=== PATIENT | female | born 1985 | race Caucasian/White ===

== ENCOUNTER 2016-05-18 17:17 | Emergency (ER) | payer MEDICAID, OTHER ==
[2016-05-18] MEDS ORDERED: SODIUM CHLORIDE 0.9% 1,000 ML IV ONE (18:05)
[2016-05-18] MEDS ORDERED: CLINDAMYCIN 600 MG/50 ML 50 ML IV ONE ×2 (18:05→18:09)
[2016-05-18] MEDS ORDERED: KETOROLAC 60 MG/2 ML VIAL IVP STA (18:05)
[2016-05-18] MEDS ORDERED: ONDANSETRON 4 MG/2 ML VIAL IVP STA (18:06)
[2016-05-18] MEDS ORDERED: HYDROmorphone 1 MG/ML SYRINGE IVP STA ×2 (18:06→20:52)
[2016-05-18] MEDS ORDERED: ONDANSETRON 4 MG/2 ML VIAL ONE (18:09)
[2016-05-18] MEDS ORDERED: KETOROLAC 30 MG/ML VIAL ONE (18:09)
[2016-05-18] MEDS ORDERED: HYDROmorphone 1 MG/ML SYRINGE ONE ×2 (18:09→20:55)
[2016-05-18] MEDS ORDERED: oxyCODONE/ACET 5/325 Prepack 4 PO STA (20:52)
[2016-05-18] MEDS ORDERED: oxyCODONE/ACET 5/325 Prepack 4 PO ONE (20:55)
== END 2016-05-18 21:15 | disposition home or self-care (01) ==
DX: L03.211 Cellulitis of face (principal)
CPT/HCPCS: 70487; 96374; 96375; 96376; 99283; 99284; J1170

== ENCOUNTER 2016-05-25 18:47 | Emergency (ER) | payer MEDICAID ==
[2016-05-25] MEDS ORDERED: SODIUM CHLORIDE 0.9% 1,000 ML IV ONE (19:45)
[2016-05-25] MEDS ORDERED: METOCLOPRAMIDE 10 MG/2 ML VIAL IVP STA (19:45)
[2016-05-25] MEDS ORDERED: diphenhydrAMINE INJ 50 MG/ML VIAL IVP STA (19:45)
[2016-05-25] MEDS ORDERED: KETOROLAC 60 MG/2 ML VIAL IVP STA (19:45)
[2016-05-25] MEDS ORDERED: diphenhydrAMINE INJ 50 MG/ML VIAL ONE (19:54)
[2016-05-25] MEDS ORDERED: KETOROLAC 30 MG/ML VIAL ONE (19:54)
[2016-05-25] MEDS ORDERED: METOCLOPRAMIDE 10 MG/2 ML VIAL IVP ONE (19:55)
[2016-05-25] MEDS ORDERED: LORazepam 2 MG/ML SYRINGE IVP STA (21:02)
[2016-05-25] MEDS ORDERED: LORazepam 2 MG/ML SYRINGE ONE (21:03)
== END 2016-05-25 22:04 | disposition home or self-care (01) ==
DX: G43.001 Migraine without aura, not intractable, with status migrainosus (principal)
CPT/HCPCS: 96374; 96375; 99283; 99284; J2060

== ENCOUNTER 2016-06-15 11:46 | Emergency (ER) | payer MEDICAID ==
[2016-06-15] MEDS ORDERED: LORazepam 2 MG/ML SYRINGE IVP STA (13:03)
[2016-06-15] MEDS ORDERED: SODIUM CHLORIDE 0.9% 1,000 ML IV ONE (13:03)
[2016-06-15] MEDS ORDERED: LORazepam 2 MG/ML SYRINGE ONE (13:11)
== END 2016-06-15 14:45 | disposition home or self-care (01) ==
DX: L98.8 Other specified disorders of the skin and subcutaneous tissue (principal); R00.0 Tachycardia, unspecified
CPT/HCPCS: 36415; 80053; 80306; 81003; 81025; 83690; 84443; 85025; 85379; 93005; 93010; 93971; 96374; 99283; 99284; J2060

== ENCOUNTER 2016-09-20 12:58 | Emergency (ER) | payer MEDICAID ==
[2016-09-20] MEDS ORDERED: SODIUM CHLORIDE 0.9% 1,000 ML IV ONE (13:38)
[2016-09-20] MEDS ORDERED: KETOROLAC 30 MG/ML VIAL IVP STA (13:38)
[2016-09-20] MEDS ORDERED: DEXAMETHASONE 10 MG/ML VIAL IVP STA (13:38)
[2016-09-20] MEDS ORDERED: METOCLOPRAMIDE 10 MG/2 ML VIAL IVP STA (13:38)
[2016-09-20] MEDS ORDERED: diphenhydrAMINE INJ 50 MG/ML VIAL IVP STA (13:38)
[2016-09-20] MEDS ORDERED: diphenhydrAMINE INJ 50 MG/ML VIAL ONE (13:39)
[2016-09-20] MEDS ORDERED: DEXAMETHASONE 10 MG/ML VIAL ONE (13:40)
[2016-09-20] MEDS ORDERED: METOCLOPRAMIDE 10 MG/2 ML VIAL IVP ONE (13:40)
[2016-09-20] MEDS ORDERED: KETOROLAC 30 MG/ML VIAL ONE (13:40)
--- NOTE | 2016-09-20 13:42 | ED Physician Documentation ---
PD HPI HEADACHE - Stated complaint Stated Complaint: MIGRAINE X 4 DAYS - Chief complaint Chief Complaint: Neuro - History obtained from History obtained from: Patient - History of Present Illness Timing - onset: Other (She has frequent migraines, about weekly. She chopped a lot of wood a few days ago and then tightened up her neck and now is having intractable migraine for the last 4 days. She usually takes Imitrex but is relatively new to the area and doesn't have a doctor here yet and doesn't have any Imitrex. There is no associated fever. It is a posterior head throbbing it radiates towards the front. No possibility of . She is photophobic and phonophobic and vomited earlier today. Headache was gradual in onset.) Review of Systems Ten Systems: 10 systems reviewed and negative Constitutional: denies: Fever, Chills Nose: denies: Rhinorrhea / runny nose, Congestion Respiratory: denies: Cough GI: denies: Abdominal Pain : denies: Now EGA PD PAST MEDICAL HISTORY - Past Medical History Cardiovascular: None Respiratory: None Neuro: Headache/migraine Endocrine/Autoimmune: None Psych: Anxiety - Past Surgical History Past Surgical History: No - Present Medications Home Medications: Ambulatory Orders Medication Instructions Recorded Confirmed Magnesium Oxide [Mag Ox] 400 mg PO BID PRN #10 tablet 05/25/16 09/20/16 Sumatriptan [Imitrex] 25 mg PO BID PRN #10 tablet 09/20/16 - Allergies Allergies/Adverse Reactions: Allergies Allergy/AdvReac Type Severity Reaction Status Date / Time prochlorperazine AdvReac Hallucinati Verified 06/15/16 11:52 [From Compazine] ons prochlorperazine edisylate * AdvReac Hallucinati Verified 06/15/16 11:52 [From Compazine] ons prochlorperazine maleate * AdvReac Hallucinati Verified 06/15/16 11:52 [From Compazine] ons - Social History Does the pt smoke?: No Smoking Status: Never smoker Does the pt drink ETOH?: No Does the pt have substance abuse?: No PD ED PE NORMAL - Vitals Vital signs reviewed: Yes - General General: Alert and oriented X 3, No acute distress - HEENT HEENT: PERRL, EOMI - Neck Neck: Supple, no meningeal sign - Neuro Neuro: Alert and oriented X 3, aromatherapist 2-12 intact, No motor deficit, No sensory deficit, Normal speech - Psych Psych: Normal mood, Normal affect Results - Vitals Vitals: Vital Signs - 24 hr 09/20/16 09/20/16 09/20/16 13:04 14:19 14:30 Temperature 36.4 C L Heart Rate 85 100 77 Respiratory 18 20 18 Rate Blood Pressure 107/73 100/80 O2 Saturation 100 99 100 09/20/16 15:16 Temperature Heart Rate 93 Respiratory 18 Rate Blood Pressure 102/55 L O2 Saturation 98 Oxygen O2 Source Room air PD MEDICAL DECISION MAKING - ED course ED course: The headache is gradual in onset and similar to prior headaches. As such I doubt subarachnoid hemorrhage. There are no infectious symptoms such as fever or stiff neck to make me suspect meningitis. No carbon monoxide exposure. Actually seems more like a tension headache due to chopping wood than anything else. She did have some relief with Reglan, Toradol, Benadryl, but she still developed some akathisia which was treated with Ativan. Still incomplete neck pain resolution so administered Dilaudid with good improvement Departure - Departure Disposition: 01 Home, Self Care Clinical Impression: Tension type headache, Neck muscle strain Condition: Good Record reviewed to determine appropriate education?: Yes Instructions: ED Sprain Strain Neck, ED Cephalgia Unspecified Follow-Up: [facility] [Provider Group] Prescriptions: Sumatriptan [Imitrex] 25 mg PO BID PRN #10 tablet PRN Reason: Headache Discharge Date/Time: 09/20/16 15:18
[2016-09-20] MEDS ORDERED: LORazepam 2 MG/ML SYRINGE IVP STA (14:15)
[2016-09-20] MEDS ORDERED: LORazepam 2 MG/ML SYRINGE ONE (14:15)
[2016-09-20] MEDS ORDERED: HYDROmorphone 1 MG/ML SYRINGE IVP STA (14:41)
[2016-09-20] MEDS ORDERED: HYDROmorphone 1 MG/ML SYRINGE ONE (14:42)
[2016-09-20 15:18] VITALS: BP 102/55
== END 2016-09-20 15:18 | disposition home or self-care (01) ==
LOC: ED 12:58
DX: G44.209 Tension-type headache, unspecified, not intractable (principal); S16.1XXA Strain of muscle, fascia and tendon at neck level, initial encounter; X50.3XXA Overexertion from repetitive movements, initial encounter
CPT/HCPCS: 36415; 96374; 96375; 99283; 99284; J1170; J2060

== ENCOUNTER 2017-02-21 12:23 | Emergency (ER) | payer MEDICAID ==
[2017-02-21] MEDS ORDERED: SUMAtriptan 6 MG/0.5 ML VIAL SUBQ STA (12:40)
[2017-02-21] MEDS ORDERED: SODIUM CHLORIDE 0.9% 1,000 ML IV ONE (12:40)
[2017-02-21] MEDS ORDERED: KETOROLAC 60 MG/2 ML VIAL IVP STA (12:40)
[2017-02-21] MEDS ORDERED: LORazepam 2 MG/ML SYRINGE IVP STA (12:40)
[2017-02-21] MEDS ORDERED: DEXAMETHASONE 10 MG/ML VIAL IVP STA (12:40)
[2017-02-21] MEDS ORDERED: LIDOCAINE 2%-EPI 1:100000 20 ML MDV ONE (12:47)
--- NOTE | 2017-02-21 12:50 | ED Physician Documentation ---
History of Present Illness - Stated complaint Stated Complaint: NECK PX/MIGRAINE/DEHYDRATION - Chief complaint Chief Complaint: General - History obtained from History obtained from: Patient - Additonal information Additional information: 32-year-old woman with frequent migraines, has been maintained on prophylactic medications in the past including but not limited to Topamax which she is not currently on because of side effects, specifically weight gain. She does get some relief from Imitrex. No current primary care physician, she moved to the area a little under a year ago and doctors kind of scare her. She has had a current headache for 2 days, gradual onset occipital headache associated with photophobia and nausea with vomiting for the last day and feeling like she is dizzy and dehydrated. No possibility of . No fever. Review of Systems Constitutional: denies: Fever, Chills Eyes: reports: Photophobia. denies: Loss of vision, Decreased vision Cardiac: denies: Chest pain / pressure, Palpitations Respiratory: denies: Dyspnea, Cough GI: reports: Nausea, Vomiting. denies: Abdominal Pain PD PAST MEDICAL HISTORY - Past Medical History Past Medical History: Yes Cardiovascular: None Respiratory: None Neuro: Headache/migraine Endocrine/Autoimmune: None Psych: Anxiety - Past Surgical History Past Surgical History: No - Present Medications Home Medications: Ambulatory Orders Medication Instructions Recorded Confirmed Cyclobenzaprine [Flexeril] 10 mg PO TID PRN #20 tablet 02/21/17 Lorazepam [Ativan] 1 mg PO TID PRN #10 tablet 02/21/17 Ondansetron HCl [Zofran] 4 mg PO Q6H PRN #10 tablet 02/21/17 Sumatriptan [Imitrex] 25 mg PO BID PRN #10 tablet 02/21/17 Topiramate [Topamax] 25 mg PO QD #30 tablet 02/21/17 - Allergies Allergies/Adverse Reactions: Allergies Allergy/AdvReac Type Severity Reaction Status Date / Time diphenhydramine AdvReac Anxiety Verified 02/21/17 12:30 prochlorperazine AdvReac Hallucinati Verified 02/21/17 12:30 [From Compazine] ons prochlorperazine edisylate * AdvReac Hallucinati Verified 02/21/17 12:30 [From Compazine] ons prochlorperazine maleate * AdvReac Hallucinati Verified 02/21/17 12:30 [From Compazine] ons - Social History Does the pt smoke?: No Smoking Status: Never smoker Does the pt drink ETOH?: No Does the pt have substance abuse?: No - Immunizations Immunizations are current?: Yes PD ED PE NORMAL - Vitals Vital signs reviewed: Yes - General General: Alert and oriented X 3, Other (Uncomfortable and photophobic) - HEENT HEENT: PERRL, EOMI - Neck Neck: Supple, no meningeal sign, No bony TTP - Neuro Neuro: Alert and oriented X 3, 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 PD MEDICAL DECISION MAKING - ED course ED course: 32-year-old woman with recurrent headache syndrome, partially seems migrainous, but partially is sort of the tension headaches/fibromyalgia flare. She was administered medications with stepwise relief, the headache was easier to break than her neck and shoulder pain. The headache is gradual in onset and similar to prior headaches. As such I doubt subarachnoid hemorrhage. There are no infectious symptoms such as fever or stiff neck to make me suspect meningitis. No carbon monoxide exposure by history. Departure - Departure Disposition: 01 Home, Self Care Clinical Impression: Tension type headache Qualifiers: Headache chronicity pattern: acute headache Intractability: not intractable Qualified Code(s): G44.209 - Tension-type headache, unspecified, not intractable Migraine Qualifiers: Migraine type: without aura Status migrainosus presence: with status migrainosus Intractability: not intractable Qualified Code(s): G43.001 - Migraine without aura, not intractable, with status migrainosus Neck muscle strain Qualifiers: Encounter type: initial encounter Qualified Code(s): S16.1XXA - Strain of muscle, fascia and tendon at neck level, initial encounter Condition: Good Record reviewed to determine appropriate education?: Yes Instructions: ED Spasm Neck No Injury Prescriptions: Cyclobenzaprine [Flexeril] 10 mg PO TID PRN #20 tablet PRN Reason: Pain Lorazepam [Ativan] 1 mg PO TID PRN #10 tablet PRN Reason: Anxiety Ondansetron HCl [Zofran] 4 mg PO Q6H PRN #10 tablet PRN Reason: Nausea / Vomiting Sumatriptan [Imitrex] 25 mg PO BID PRN #10 tablet PRN Reason: Headache Topiramate [Topamax] 25 mg PO QD #30 tablet Comments: Call your doctor to arrange a follow-up appointment, make the next available appointment. In the interim, return anytime if worse or if new symptoms develop. Discharge Date/Time: 02/21/17 15:18
[2017-02-21] MEDS ORDERED: LORazepam 2 MG/ML SYRINGE ONE (12:56)
[2017-02-21] MEDS ORDERED: SODIUM CHLORIDE FLUSH 0.9% 10 ML SYRINGE IVP ONE ×3 (12:56→14:06)
[2017-02-21] MEDS ORDERED: SUMAtriptan 6 MG/0.5 ML VIAL SUBQ ONE (12:57)
[2017-02-21] MEDS ORDERED: KETOROLAC 60 MG/2 ML VIAL ONE (12:57)
[2017-02-21] MEDS ORDERED: DEXAMETHASONE 10 MG/ML VIAL ONE (12:57)
[2017-02-21] MEDS ORDERED: ONDANSETRON 4 MG/2 ML VIAL IVP STA (13:41)
[2017-02-21] MEDS ORDERED: ONDANSETRON 4 MG/2 ML VIAL ONE (13:50)
[2017-02-21] MEDS ORDERED: MORPHINE 10 MG/ML VIAL IVP STA (13:57)
[2017-02-21] MEDS ORDERED: MORPHINE 10 MG/ML VIAL ONE (14:07)
[2017-02-21 14:59] VITALS: BP 99/60
== END 2017-02-21 15:18 | disposition home or self-care (01) ==
LOC: ED 12:23
DX: G44.209 Tension-type headache, unspecified, not intractable (principal); G43.001 Migraine without aura, not intractable, with status migrainosus; S16.1XXA Strain of muscle, fascia and tendon at neck level, initial encounter; X58.XXXA Exposure to other specified factors, initial encounter
CPT/HCPCS: 96361; 96372; 96374; 96375; 99283; 99284; J2060

== ENCOUNTER 2017-04-26 14:35 | Emergency (ER) | payer MEDICAID ==
[2017-04-26] MEDS ORDERED: SODIUM CHLORIDE 0.9% 1,000 ML IV ONE (14:48)
[2017-04-26] MEDS ORDERED: LIDOCAINE PATCH 5% TOP STA (14:49)
[2017-04-26] MEDS ORDERED: ONDANSETRON 4 MG/2 ML VIAL IVP STA (14:49)
[2017-04-26] MEDS ORDERED: ACETAMINOPHEN 1,000 MG/100 ML 100 ML IV STA (14:49)
[2017-04-26] MEDS ORDERED: KETOROLAC 60 MG/2 ML VIAL IVP STA (14:49)
--- NOTE | 2017-04-26 14:52 | ED Physician Documentation ---
History of Present Illness - Stated complaint Stated Complaint: MORALES - Chief complaint Chief Complaint: Heent - Additonal information Additional information: hx from pt 32 f hx migraines has a migraine MORALES same as prior migraines, onset yesterday, prsently severe, with associated neck tightness which is common for her migraines as well no fever no numbness weakness + photophobia no CO exposure denies preg MORALES started last night she took imitrex today s relief also advil migraine but threw that up Review of Systems Constitutional: denies: Fever, Chills Eyes: reports: Photophobia Respiratory: denies: Cough GI: reports: Nausea, Vomiting : denies: Now EGA (denies) Skin: denies: Rash Neurologic: reports: Headache. denies: Focal weakness, Numbness Immunocompromised: denies: Immunocompromised PD PAST MEDICAL HISTORY - Past Medical History Cardiovascular: None Respiratory: None Neuro: Headache/migraine Endocrine/Autoimmune: None Psych: Anxiety - Past Surgical History Past Surgical History: No - Present Medications Home Medications: Ambulatory Orders Medication Instructions Recorded Confirmed Cyclobenzaprine [Flexeril] 10 mg PO TID PRN #20 tablet 02/21/17 Lorazepam [Ativan] 1 mg PO TID PRN #10 tablet 02/21/17 Ondansetron HCl [Zofran] 4 mg PO Q6H PRN #10 tablet 02/21/17 SUMAtriptan [Imitrex] 25 mg PO BID PRN #10 tablet 02/21/17 Topiramate [Topamax] 25 mg PO QD #30 tablet 02/21/17 Carisoprodol [Soma] 350 mg PO Q8H PRN #15 tablet 04/26/17 Lidocaine Patch 5% [Lidoderm Patch] 1 each TOP DAILY PRN #10 patch 04/26/17 - Allergies Allergies/Adverse Reactions: Allergies Allergy/AdvReac Type Severity Reaction Status Date / Time diphenhydramine AdvReac Anxiety Verified 02/21/17 12:30 prochlorperazine AdvReac Hallucinati Verified 02/21/17 12:30 [From Compazine] ons prochlorperazine edisylate * AdvReac Hallucinati Verified 02/21/17 12:30 [From Compazine] ons prochlorperazine maleate * AdvReac Hallucinati Verified 02/21/17 12:30 [From Compazine] ons - Social History Does the pt smoke?: No Smoking Status: Never smoker Does the pt drink ETOH?: No Does the pt have substance abuse?: No - Immunizations Immunizations are current?: Yes PD ED PE NORMAL - Vitals Vital signs reviewed: Yes - General General: Alert and oriented X 3 - HEENT HEENT: PERRL (approx 3, globes soft, no TA TTP, too photophobic for fundoscopic) - Neck Neck: Supple, no meningeal sign - Cardiac Cardiac: RRR - Respiratory Respiratory: No respiratory distress, Clear bilaterally - Derm Derm: Normal color - Neuro Neuro: Alert and oriented X 3, branch chief 2-12 intact, No motor deficit, No sensory deficit, Normal speech Results - Vitals Vitals: Vital Signs - 24 hr 04/26/17 14:39 Temperature 36.2 C L Heart Rate 93 Respiratory 15 Rate Blood Pressure 97/67 O2 Saturation 99 Oxygen O2 Source Room air PD MEDICAL DECISION MAKING - ED course ED course: MORALES better with toradol ofirmev zofran IVF, neck still tight - same as prior visits per EMR review - added valium PO and pt felt better and ready to go - req lido patches and mm relaxant Departure - Departure Disposition: 01 Home, Self Care Clinical Impression: Neck muscle spasm Headache Qualifiers: Headache type: unspecified Headache chronicity pattern: acute headache Intractability: not intractable Qualified Code(s): R51 - Headache Condition: Good Instructions: ED Cephalgia Unspecified, ED Spasm Neck No Injury Prescriptions: Carisoprodol [Soma] 350 mg PO Q8H PRN #15 tablet PRN Reason: muscle spasm Lidocaine Patch 5% [Lidoderm Patch] 1 each TOP DAILY PRN #10 patch PRN Reason: Pain Forms: Activity restrictions
[2017-04-26] MEDS ORDERED: CYCLOBENZAPRINE 10 MG TABLET PO STA (15:54)
[2017-04-26] MEDS ORDERED: diazePAM INJ 5 MG/ML SYRINGE IVP STA (16:15)
[2017-04-26] MEDS ORDERED: diazePAM 5 MG TABLET PO STA (16:30)
[2017-04-26 17:42] VITALS: BP 110/65
== END 2017-04-26 17:40 | disposition home or self-care (01) ==
LOC: ED 14:35
DX: M62.838 Other muscle spasm (principal); R51 Headache
CPT/HCPCS: 96361; 96365; 96375; 99283; A9270; J0131

== ENCOUNTER 2017-11-30 11:32 | Emergency (ER) | payer MEDICAID ==
[2017-11-30] MEDS ORDERED: KETOROLAC 60 MG/2 ML VIAL IVP STA (15:04)
[2017-11-30] MEDS ORDERED: ONDANSETRON 4 MG/2 ML VIAL IVP STA (15:04)
[2017-11-30] MEDS ORDERED: SODIUM CHLORIDE 0.9% 1,000 ML IV ONE (15:04)
[2017-11-30] MEDS ORDERED: LORazepam 2 MG/ML VIAL IVP STA (15:04)
--- NOTE | 2017-11-30 15:05 | ED Physician Documentation ---
History of Present Illness - Stated complaint Stated Complaint: MIGRAINE - Chief complaint Chief Complaint: General - History obtained from History obtained from: Patient - History of Present Illness Timing: Other (32-year-old woman with frequent headaches, takes maxalt at home. She said 4 days of constant posterior headache radiating down to the shoulders that is worse with neck flexion and extension but also with rotation. It is similar to prior headaches but also with more facial pressure. She has been vomiting and she is light sensitive. There is no possibility of . She tried maxalt at home without relief.) Review of Systems Constitutional: denies: Fever, Chills Respiratory: denies: Dyspnea, Cough GI: reports: Nausea, Vomiting. denies: Abdominal Pain : denies: Dysuria, Now EGA PD PAST MEDICAL HISTORY - Past Medical History Cardiovascular: None Respiratory: None Endocrine/Autoimmune: None GI: None CHECK AIRMAN: None : None Psych: Anxiety Musculoskeletal: None Derm: None - Past Surgical History Past Surgical History: No - Present Medications Home Medications: Ambulatory Orders Medication Instructions Recorded Confirmed Cyclobenzaprine [Flexeril] 10 mg PO TID PRN #20 tablet 02/21/17 Lorazepam [Ativan] 1 mg PO TID PRN #10 tablet 02/21/17 Ondansetron HCl [Zofran] 4 mg PO Q6H PRN #10 tablet 02/21/17 SUMAtriptan [Imitrex] 25 mg PO BID PRN #10 tablet 02/21/17 Topiramate [Topamax] 25 mg PO QD #30 tablet 02/21/17 Carisoprodol [Soma] 350 mg PO Q8H PRN #15 tablet 04/26/17 Lidocaine Patch 5% [Lidoderm Patch] 1 each TOP DAILY PRN #10 patch 04/26/17 Methocarbamol [Robaxin-750] 750 mg PO TID PRN #10 tablet 11/30/17 - Allergies Allergies/Adverse Reactions: Allergies Allergy/AdvReac Type Severity Reaction Status Date / Time diphenhydramine AdvReac Anxiety Verified 02/21/17 12:30 prochlorperazine AdvReac Hallucinati Verified 02/21/17 12:30 [From Compazine] ons prochlorperazine edisylate * AdvReac Hallucinati Verified 02/21/17 12:30 [From Compazine] ons prochlorperazine maleate * AdvReac Hallucinati Verified 02/21/17 12:30 [From Compazine] ons - Social History Does the pt smoke?: No Smoking Status: Never smoker Does the pt drink ETOH?: No Does the pt have substance abuse?: No - Immunizations Immunizations are current?: Yes - POLST Patient has POLST: No PD ED PE NORMAL - Vitals Vital signs reviewed: Yes - General General: Alert and oriented X 3 (Light sensitive and photophobic) - HEENT HEENT: PERRL, EOMI - Neck Neck: Supple, no meningeal sign, No bony TTP - Neuro Neuro: Alert and oriented X 3, 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 As such I doubt subarachnoid hemorrhage. There are no infectious symptoms such as fever or stiff neck to make me suspect meningitis. No carbon monoxide exposure by history. Seems more like a tension headache and she feels the same. She was administered Ativan, Toradol, and Zofran with excellent relief of her symptoms. - Sepsis Event Vital Signs: Vital Signs - 24 hr 11/30/17 11/30/17 11/30/17 11:48 14:59 16:00 Temperature 36.2 C L 36.4 C L Heart Rate 80 80 80 Respiratory 18 20 15 Rate Blood Pressure 101/69 112/62 102/62 O2 Saturation 100 100 99 Oxygen O2 Source Nasal cannula Departure - Departure Disposition: 01 Home, Self Care Clinical Impression: Tension type headache Qualifiers: Headache chronicity pattern: acute headache Intractability: not intractable Qualified Code(s): G44.209 - Tension-type headache, unspecified, not intractable Condition: Good Record reviewed to determine appropriate education?: Yes Instructions: ED Headache Tension Prescriptions: Methocarbamol [Robaxin-750] 750 mg PO TID PRN #10 tablet PRN Reason: neck pain Comments: Call your doctor to arrange a follow-up appointment, make the next available appointment. In the interim, return anytime if worse or if new symptoms develop.
[2017-11-30 16:23] VITALS: BP 102/62
[2017-11-30] MEDS ORDERED: CYCLOBENZAPRINE 10 MG TABLET PO STA (16:49)
[2017-11-30] MEDS ORDERED: METHOCARBAMOL 500 MG TABLET PO STA (17:00)
== END 2017-11-30 17:09 | disposition home or self-care (01) ==
LOC: ED 11:32
DX: G44.209 Tension-type headache, unspecified, not intractable (principal)
CPT/HCPCS: 96374; 96375; 99283; A9270; J2060

== ENCOUNTER 2018-02-07 09:35 | Emergency (ER) | payer MEDICAID ==
[2018-02-07 09:50] VITALS: BP 111/66
[2018-02-07] MEDS ORDERED: BUPIVACAINE 0.5%-EPI 1:200000 PF 10 ML VIAL SUBQ STA (09:57)
--- NOTE | 2018-02-07 10:00 | ED Physician Documentation ---
History of Present Illness - Stated complaint Stated Complaint: TOOTH PX - Chief complaint Chief Complaint: Heent - History obtained from History obtained from: Patient, Family - History of Present Illness Timing: How many days ago (2) Pain level max: 10 Pain level now: 10 Improved by: nothing Worsened by: nothing - Additonal information Additional information: Patient is a 33-year-old female who presents to the emergency department with right upper dental pain. This been ongoing for the past 2 days. No fevers. Has had nausea and some vomiting from the pain. Has not taken anything for pain. Does not currently have a dentist. Does not recall any injuries. No fever. No possibility of . No rhinorrhea or congestion Review of Systems Constitutional: denies: Fever, Chills Respiratory: denies: Cough GI: denies: Abdominal Pain, Diarrhea : denies: Now EGA Skin: denies: Rash Musculoskeletal: denies: Neck pain, Back pain Neurologic: denies: Headache PD PAST MEDICAL HISTORY - Past Medical History Past Medical History: Yes Cardiovascular: None Respiratory: None Neuro: Migraines Endocrine/Autoimmune: None GI: None TRAFFIC CONTROL FLAGGER: None : None Psych: Anxiety Musculoskeletal: None Derm: None - Past Surgical History Past Surgical History: No - Present Medications Home Medications: Ambulatory Orders Medication Instructions Recorded Confirmed Hydrocodone/Acetaminophen 1 - 2 each PO Q6H PRN #14 tablet 02/07/18 [Hydrocodon-Acetaminophen 5-325] Ibuprofen [Motrin] 800 mg PO Q8H PRN #30 tablet 02/07/18 Penicillin V Potassium 500 mg PO Q6HR #40 tablet 02/07/18 Rizatriptan Benzoate [Rizatriptan] 0 mg 02/07/18 - Allergies Allergies/Adverse Reactions: Allergies Allergy/AdvReac Type Severity Reaction Status Date / Time diphenhydramine AdvReac Anxiety Verified 02/07/18 09:50 prochlorperazine AdvReac Hallucinati Verified 02/07/18 09:50 [From Compazine] ons prochlorperazine edisylate * AdvReac Hallucinati Verified 02/07/18 09:50 [From Compazine] ons prochlorperazine maleate * AdvReac Hallucinati Verified 02/07/18 09:50 [From Compazine] ons - Social History Does the pt smoke?: No Smoking Status: Never smoker Does the pt drink ETOH?: No Does the pt have substance abuse?: No - Immunizations Immunizations are current?: Yes - POLST Patient has POLST: No PD ED PE NORMAL - Vitals Vital signs reviewed: Yes - General General: Alert and oriented X 3, No acute distress - HEENT HEENT: Ears normal, Moist mucous membranes - Neck Neck: Supple, no meningeal sign - Cardiac Cardiac: RRR - Respiratory Respiratory: No respiratory distress, Clear bilaterally - Derm Derm: Warm and dry - Neuro Neuro: Alert and oriented X 3 PD ED PE EXPANDED - HEENT HEENT Visual: 1 - tenderness (no swelling or deformity.) Results - Vitals Vitals: Vital Signs - 24 hr 02/07/18 09:41 Temperature 35.9 C L Heart Rate 76 Respiratory 20 Rate Blood Pressure 111/66 O2 Saturation 100 Oxygen O2 Source Room air PD MEDICAL DECISION MAKING - ED course Complexity details: re-evaluated patient, considered differential, d/w patient ED course: Patient is a 33-year-old female with right upper dental pain, tooth 1. A dental block was performed with Marcaine plus epinephrine. Tolerated well. Pain greatly improved. Was given a dose of Toradol for a headache. Will place on antibiotics for home and pain medication. She was able to obtain a dentist appointment for 2:00 today. Patient counseled regarding signs and symptoms for which I believe and urgent re-evaluation would be necessary. Patient with good understanding of and agreement to plan and is comfortable going home at this time This document was made in part using voice recognition software. While efforts are made to proofread this document, sound alike and grammatical errors may occur. - Sepsis Event Vital Signs: Vital Signs - 24 hr 02/07/18 09:41 Temperature 35.9 C L Heart Rate 76 Respiratory 20 Rate Blood Pressure 111/66 O2 Saturation 100 Oxygen O2 Source Room air Departure - Departure Disposition: 01 Home, Self Care Clinical Impression: Pain due to dental caries Condition: Good Instructions: ED Tooth Pain Follow-Up: your,dentist within 2 days [Other] Prescriptions: Penicillin V Potassium 500 mg PO Q6HR #40 tablet Hydrocodone/Acetaminophen [Hydrocodon-Acetaminophen 5-325] 1 - 2 each PO Q6H PRN #14 tablet PRN Reason: pain Ibuprofen [Motrin] 800 mg PO Q8H PRN #30 tablet PRN Reason: PAIN &/OR FEVER Comments: Return if you worsen. It is very important that you are evaluated by a dentist for your tooth. This needs to be done as soon as possible, preferably within the next 2-3 days. Take all antibiotics until gone Do not drink alcohol or drive while on narcotic pain medicine. Note that many narcotic pain relievers also contain tylenol/acetaminophen. Please ensure that your total dose of acetaminophen from all sources does not exceed 3 grams (3000mg) per day. You may constipated on this medication, take a stool softener such as "Colace" twice a day while you are on it. Also recommend a [id number] laxative such as senna or MiraLAX any day that you do not have a bowel movement. If you received narcotic pain medication in the emergency department, do not drive or operate machinery for the next 24 hours. Discharge Date/Time: 02/07/18 10:49
[2018-02-07] MEDS ORDERED: KETOROLAC 60 MG/2 ML VIAL IM STA (10:41)
== END 2018-02-07 10:49 | disposition home or self-care (01) ==
LOC: ED 09:35
DX: K02.9 Dental caries, unspecified (principal); R51 Headache
CPT/HCPCS: 64400; 96372; 99283

== ENCOUNTER 2018-04-05 11:36 | Emergency (ER) | payer MEDICAID ==
[2018-04-05 11:42] VITALS: BP 123/73
--- NOTE | 2018-04-05 13:11 | ED Physician Documentation ---
History of Present Illness - Stated complaint Stated Complaint: FEMALE - Chief complaint Chief Complaint: General - History obtained from History obtained from: Patient - History of Present Illness Timing: Other (Several days worth of a genital herpes outbreak. She is been on Valtrex before and requests a refill.) Review of Systems Constitutional: reports: Fatigue. 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 : None Psych: Anxiety Musculoskeletal: None Derm: None - Past Surgical History Past Surgical History: No - Present Medications Home Medications: Ambulatory Orders Medication Instructions Recorded Confirmed Ibuprofen [Motrin] 800 mg PO Q8H PRN #30 tablet 02/07/18 Rizatriptan Benzoate [Rizatriptan] 0 mg 02/07/18 Valacyclovir HCl [Valacyclovir] 500 mg PO BID 2 Days #10 tablet 04/05/18 - Allergies Allergies/Adverse Reactions: Allergies Allergy/AdvReac Type Severity Reaction Status Date / Time diphenhydramine AdvReac Anxiety Verified 02/07/18 09:50 prochlorperazine AdvReac Hallucinati Verified 02/07/18 09:50 [From Compazine] ons prochlorperazine edisylate * AdvReac Hallucinati Verified 02/07/18 09:50 [From Compazine] ons prochlorperazine maleate * AdvReac Hallucinati Verified 04/05/18 11:42 [From Compazine] ons - Social History Does the pt smoke?: No Smoking Status: Never smoker Does the pt drink ETOH?: No Does the pt have substance abuse?: No - Immunizations Immunizations are current?: Yes - POLST Patient has POLST: No PD ED PE NORMAL - Vitals Vital signs reviewed: Yes - General General: Alert and oriented X 3, No acute distress - Female Female : Deferred (We discussed a pelvic exam but she is sure of the diagnosis.) - Neuro Neuro: Alert and oriented X 3, Normal speech Results - Vitals Vitals: Vital Signs - 24 hr 04/05/18 11:40 Temperature 36.5 C Heart Rate 94 Respiratory 18 Rate Blood Pressure 123/73 O2 Saturation 100 Oxygen O2 Source Room air Departure - Departure Disposition: Home, Self Care Clinical Impression: Genital herpes Qualifiers: Herpes simplex infection site: vulvovaginitis Qualified Code(s): A60.04 - Herpesviral vulvovaginitis Condition: Good Record reviewed to determine appropriate education?: Yes Instructions: ED Herpes Simplex Virus Type 2 Prescriptions: Valacyclovir HCl [Valacyclovir] 500 mg PO BID 2 Days #10 tablet Comments: Call your doctor to arrange a follow-up appointment, make the next available appointment. In the interim, return anytime if worse or if new symptoms develop.
== END 2018-04-05 13:16 | disposition home or self-care (01) ==
LOC: ED 11:36
DX: A60.04 Herpesviral vulvovaginitis (principal)
CPT/HCPCS: 99281; 99283

== ENCOUNTER 2018-06-23 20:10 | Emergency (ER) | payer MEDICAID ==
--- NOTE | 2018-06-23 20:26 | ED Physician Documentation ---
PD HPI HEADACHE - Stated complaint Stated Complaint: HEAD/NECK PX/VOMITING - Chief complaint Chief Complaint: Neuro - History obtained from History obtained from: Patient - History of Present Illness Timing - onset: Today Timing - onset during: Light activity Timing - details: Gradual onset, Still present Worst headache ever?: No: Worst headache ever? (feels similar to prior migraines and muscle tension headaches.) Location: Back, Left Quality: Throbbing, Aching Associated symptoms: Stiff neck (left side, with feeling of muscle spasm), Nausea, Other (light sensitive as well). No: Fever, Vomiting, Weakness, Numbness Worsened by: Light Contributing factors: No: Recent illness, Trauma Similar symptoms before: Diagnosis (has migraines and muscle tension headaches, she says this feels more muscle tension but some migraine components.) Review of Systems Constitutional: denies: Fever Nose: denies: Rhinorrhea / runny nose, Congestion Throat: denies: Sore throat Respiratory: denies: Cough GI: reports: Nausea. denies: Abdominal Pain, Vomiting Skin: denies: Rash, Lesions Neurologic: reports: Headache. 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 : None Psych: Anxiety Musculoskeletal: None Derm: None - Past Surgical History Past Surgical History: No - Present Medications Home Medications: Ambulatory Orders Medication Instructions Recorded Confirmed Ibuprofen [Motrin] 800 mg PO Q8H PRN #30 tablet 02/07/18 Rizatriptan Benzoate [Rizatriptan] 0 mg 02/07/18 Valacyclovir HCl [Valacyclovir] 500 mg PO BID 2 Days #10 tablet 04/05/18 LORazepam [Ativan] 1 mg PO Q12H PRN #8 tablet 06/23/18 Ondansetron Odt [Zofran] 4 mg TL Q6H PRN #10 tablet 06/23/18 - Allergies Allergies/Adverse Reactions: Allergies Allergy/AdvReac Type Severity Reaction Status Date / Time diphenhydramine AdvReac Anxiety Verified 06/23/18 20:15 prochlorperazine AdvReac Hallucinati Verified 06/23/18 20:15 [From Compazine] ons prochlorperazine edisylate * AdvReac Hallucinati Verified 06/23/18 20:15 [From Compazine] ons prochlorperazine maleate * AdvReac Hallucinati Verified 06/23/18 20:15 [From Compazine] ons - Social History Does the pt smoke?: No Smoking Status: Never smoker Does the pt drink ETOH?: No Does the pt have substance abuse?: No - Immunizations Immunizations are current?: Yes - POLST Patient has POLST: No PD ED PE NORMAL - Vitals Vital signs reviewed: Yes - General General: Alert and oriented X 3, Well developed/nourished, Other (appears uncomfortable. ) - HEENT HEENT: PERRL (light sensitive), Pharynx benign - Neck Neck: Supple, no meningeal sign, No adenopathy, Other (tender left trapezius muscle with spasm felt about level of C7 laterally and also with tendernes left trapezius insertion at occipital ridge with triggering of pain to left side of head with palpation there. No rash nor sores. ) - Cardiac Cardiac: RRR, No murmur - Abdomen Abdomen: Soft, Non tender - Back Back: No spinal TTP - Derm Derm: Normal color, Warm and dry, No rash Results - Vitals Vitals: Oxygen O2 Source Room air Procedures - General procedure General procedure: Trigger point injections at left side trapezius muscle at level of lower cervical and also at trapezius insertion, using Bupivocaine. 2 ml injected after cleansing skin. PD MEDICAL DECISION MAKING - ED course Complexity details: reviewed old records, re-evaluated patient (she says muscle component seems much better after trigger point injection. ), considered differential, d/w patient Departure - Departure Disposition: 01 Home, Self Care Clinical Impression: Headache Qualifiers: Headache type: tension-type Headache chronicity pattern: acute headache Intractability: not intractable Qualified Code(s): G44.209 - Tension-type headache, unspecified, not intractable Migraine Qualifiers: Migraine type: without aura Status migrainosus presence: without status migrainosus Intractability: not intractable Qualified Code(s): G43.009 - Migraine without aura, not intractable, without status migrainosus Condition: Stable Record reviewed to determine appropriate education?: Yes Instructions: ED Headache Tension Prescriptions: LORazepam [Ativan] 1 mg PO Q12H PRN #8 tablet PRN Reason: Headache Ondansetron Odt [Zofran] 4 mg TL Q6H PRN #10 tablet PRN Reason: Nausea / Vomiting Comments: Stay well hydrated. Zofran if needed for nausea. Ativan as needed for muscle tension very occasionally. Any further prescriptions would be at the discretion of your primary care provider. Discharge Date/Time: 06/23/18 23:25
[2018-06-23] MEDS ORDERED: SODIUM CHLORIDE 0.9% 1,000 ML IV ONE (21:17)
[2018-06-23] MEDS ORDERED: DEXAMETHASONE 10 MG/ML VIAL IVP STA (21:21)
[2018-06-23] MEDS ORDERED: KETOROLAC 30 MG/ML VIAL IVP STA (21:21)
[2018-06-23] MEDS ORDERED: ONDANSETRON 4 MG/2 ML VIAL IVP STA (21:21)
[2018-06-23] MEDS ORDERED: BUPIVACAINE 0.5%-EPI 1:200000 PF 10 ML VIAL SUBQ STA (21:21)
[2018-06-23] MEDS ORDERED: LORazepam 2 MG/ML VIAL IVP STA (21:24)
[2018-06-23] MEDS ORDERED: HYDROmorphone 1 MG/ML CARPUJECT IVP STA (22:19)
[2018-06-23 22:45] VITALS: BP 109/61
[2018-06-23] MEDS ORDERED: ONDANSETRON ODT 4 MG Prepack 2 TL PRN (23:12)
== END 2018-06-23 23:25 | disposition home or self-care (01) ==
LOC: ED 20:10
DX: G44.209 Tension-type headache, unspecified, not intractable (principal); G43.009 Migraine without aura, not intractable, without status migrainosus
CPT/HCPCS: 20552; 96374; 96375; 99283; 99284; J1170; J2060

== ENCOUNTER 2018-08-12 15:14 | Emergency (ER) | payer MEDICAID ==
[2018-08-12] MEDS ORDERED: KETOROLAC 30 MG/ML VIAL IVP STA (15:54)
[2018-08-12] MEDS ORDERED: PROMETHAZINE INJ 12.5 MG in SODIUM CHLORIDE 0.9% 50 ML IV STA (15:54)
[2018-08-12] MEDS ORDERED: ONDANSETRON 4 MG/2 ML VIAL IVP STA (15:55)
[2018-08-12] MEDS ORDERED: ACETAMINOPHEN 1,000 MG/100 ML 100 ML IV STA (15:55)
[2018-08-12] MEDS ORDERED: SUMAtriptan 6 MG/0.5 ML VIAL SUBQ STA (15:55)
[2018-08-12 16:01] LABS: LEUKOCYTE ESTERASE, URINE MODERATE (NEGATIVE); NITRITE,URINE POSITIVE (NEGATIVE); OCCULT BLOOD,URINE LARGE (NEGATIVE)
[2018-08-12 16:06] LABS: HCG UR QUAL NEGATIVE
[2018-08-12 16:15] LABS: CLARITY,URINE HAZY (CLEAR)
[2018-08-12 16:16] LABS: BILIRUBIN,URINE NEGATIVE (NEGATIVE); ICTOTEST,URINE NEGATIVE
[2018-08-12 16:17] LABS: BACTERIA,URINE Rare /HPF (None Seen); SQUAMOUS EPITHELIAL CELL,UR FEW Squamous (<= Few); WBC CLUMPS,URINE PRESENT
[2018-08-12] MEDS ORDERED: cefTRIAXone 1 GM VIAL IVP STA (16:17)
[2018-08-12] MEDS ORDERED: LORazepam 2 MG/ML VIAL IVP STA (16:47)
[2018-08-12] MEDS ORDERED: MORPHINE 2 MG/ML SYRINGE IVP STA (17:06)
--- NOTE | 2018-08-12 17:10 | ED Physician Documentation ---
PD HPI HEADACHE - Stated complaint Stated Complaint: HEADACHE - Chief complaint Chief Complaint: Neuro - History obtained from History obtained from: Patient, Family - History of Present Illness Timing - onset: Today Timing - onset during: Rest Timing - duration: Days (1) Timing - details: Gradual onset Pain level max: 10 Pain level now: 10 Location: Global Quality: Throbbing, Aching. No: Thunderclap Associated symptoms: Nausea, Vomiting. No: Fever, Stiff neck, Weakness, Numbness, Syncope, Seizure, Eye pain, Vision changes Improved by: Rest, Dark room Worsened by: Light, Noise Similar symptoms before: Diagnosis (similar to past migraines) Recently seen: Not recently seen Review of Systems Constitutional: denies: Fever, Chills Respiratory: denies: Cough : reports: Dysuria, Frequency, Hesitancy. 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 Psych: Anxiety Musculoskeletal: None Derm: None - Past Surgical History Past Surgical History: No - Present Medications Home Medications: Ambulatory Orders Medication Instructions Recorded Confirmed Ibuprofen [Motrin] 800 mg PO Q8H PRN #30 tablet 02/07/18 Rizatriptan Benzoate [Rizatriptan] 0 mg 02/07/18 Valacyclovir HCl [Valacyclovir] 500 mg PO BID 2 Days #10 tablet 04/05/18 LORazepam [Ativan] 1 mg PO Q12H PRN #8 tablet 06/23/18 Ondansetron Odt [Zofran] 4 mg TL Q6H PRN #10 tablet 06/23/18 Butalb/Acetaminophen/Caffeine 1 cap PO Q6H PRN #30 capsule 08/12/18 [Fioricet 50-300-40 mg Capsule] Nitrofurantoin Monohyd/M-Cryst 100 mg PO BID #10 capsule 08/12/18 [Macrobid 100 mg Capsule] Ondansetron Odt [Zofran] 4 mg TL Q6H PRN #10 tablet 08/12/18 - Allergies Allergies/Adverse Reactions: Allergies Allergy/AdvReac Type Severity Reaction Status Date / Time diphenhydramine AdvReac Anxiety Verified 08/12/18 15:19 prochlorperazine AdvReac Hallucinati Verified 08/12/18 15:19 [From Compazine] ons prochlorperazine edisylate * AdvReac Hallucinati Verified 08/12/18 15:19 [From Compazine] ons prochlorperazine maleate * AdvReac Hallucinati Verified 08/12/18 15:19 [From Compazine] ons - Social History Does the pt smoke?: No Smoking Status: Never smoker Does the pt drink ETOH?: No Does the pt have substance abuse?: No - Immunizations Immunizations are current?: Yes - POLST Patient has POLST: No PD ED PE NORMAL - Vitals Vital signs reviewed: Yes - General General: Alert and oriented X 3, Well developed/nourished, Other (Appears uncomfortable) - HEENT HEENT: PERRL, EOMI, Moist mucous membranes, Pharynx benign - Neck Neck: Supple, no meningeal sign - Cardiac Cardiac: RRR, Strong equal pulses - Respiratory Respiratory: No respiratory distress, Clear bilaterally - Abdomen Abdomen: Soft, Non tender, Non distended - Derm Derm: Warm and dry, No rash - Extremities Extremities: No edema, No calf tenderness / cord - Neuro Neuro: Alert and oriented X 3, surgical instrument mechanic 2-12 intact, No motor deficit, No sensory deficit, Normal speech Eye Opening: Spontaneous Motor: Obeys Commands Verbal: Oriented GCS Score: 15 - Psych Psych: Normal mood, Normal affect Results - Vitals Vitals: Vital Signs - 24 hr 08/12/18 08/12/18 08/12/18 15:17 15:19 17:43 Temperature 36.6 C 36.6 C Heart Rate 109 H 109 H 68 Respiratory 20 20 18 Rate Blood Pressure 109/70 109/70 114/78 O2 Saturation 99 99 99 Oxygen O2 Source Room air - Labs Labs: Laboratory Tests 08/12/18 08/12/18 15:42 15:42 Urine Color ORANGE Urine Clarity HAZY Urine pH 5.0 Ur Specific [place] 1.025 1.025 Urine Protein Urine Glucose (UA) Urine Ketones Urine Occult Blood LARGE H Urine Nitrite POSITIVE H Urine Bilirubin NEGATIVE Urine Urobilinogen Ur Leukocyte Esterase MODERATE H Urine RBC 6-10 H Urine WBC >25 H Urine WBC Clumps PRESENT Ur Squamous Epith Cells FEW Squamous Urine Bacteria Rare Ur Microscopic Review INDICATED Urine Culture Comments INDICATED Urine HCG, Qual NEGATIVE PD MEDICAL DECISION MAKING - ED course Complexity details: reviewed results, re-evaluated patient, considered differential, d/w patient, d/w family ED course: 33-year-old female with a UTI. Given Rocephin and will place on antibiotics for home. Also the migraine headache. Feels better after medications in the emergency department. Will trial on Fioricet at home to see if this helps her as well. She is well-appearing, nontoxic. Afebrile. No evidence of subarachnoid hemorrhage. Patient and family counseled regarding signs and symptoms for which I believe and urgent re-evaluation would be necessary. Patient with good understanding of and agreement to plan and is comfortable going home at this time This document was made in part using voice recognition software. While efforts are made to proofread this document, sound alike and grammatical errors may occur. Departure - Departure Disposition: 01 Home, Self Care Clinical Impression: Migraine Qualifiers: Migraine type: unspecified Status migrainosus presence: without status migrainosus Intractability: not intractable Qualified Code(s): G43.909 - Migraine, unspecified, not intractable, without status migrainosus UTI (urinary tract infection) Qualifiers: Urinary tract infection type: acute cystitis Hematuria presence: without hematuria Qualified Code(s): N30.00 - Acute cystitis without hematuria Condition: Good Instructions: ED Headache Migraine, ED UTI Cystitis Female Follow-Up: Provider,Other [Primary Care Provider] - Within 1 week Prescriptions: Butalb/Acetaminophen/Caffeine [Fioricet 50-300-40 mg Capsule] 1 cap PO Q6H PRN #30 capsule PRN Reason: Headache Nitrofurantoin Monohyd/M-Cryst [Macrobid 100 mg Capsule] 100 mg PO BID #10 capsule Ondansetron Odt [Zofran] 4 mg TL Q6H PRN #10 tablet PRN Reason: Nausea / Vomiting Comments: Use the medications as prescribed. Return if you worsen. Follow-up with your doctor for further care. Discharge Date/Time: 08/12/18 17:43
[2018-08-12 17:44] VITALS: BP 114/78
== END 2018-08-12 17:43 | disposition home or self-care (01) ==
LOC: ED 15:14
DX: G43.909 Migraine, unspecified, not intractable, without status migrainosus (principal); N30.00 Acute cystitis without hematuria
CPT/HCPCS: 81001; 81003; 81025; 87077; 87086; 87181; 99283

== ENCOUNTER 2018-08-12 20:42 | Emergency (ER) | payer MEDICAID ==
[2018-08-12] MEDS ORDERED: SODIUM CHLORIDE 0.9% 1,000 ML IV ONE (20:54)
[2018-08-12] MEDS ORDERED: KETOROLAC 30 MG/ML VIAL IVP STA (20:54)
[2018-08-12] MEDS ORDERED: LORazepam 2 MG/ML VIAL IVP STA (20:54)
[2018-08-12] MEDS ORDERED: diazePAM INJ 5 MG/ML SYRINGE IVP STA (20:55)
--- NOTE | 2018-08-12 21:17 | ED Physician Documentation ---
PD HPI HEADACHE - Stated complaint Stated Complaint: MIGRAINE - Chief complaint Chief Complaint: Neuro - History obtained from History obtained from: Patient, Family - History of Present Illness Timing - onset: Today Timing - onset during: Rest Timing - duration: Days (1) Timing - details: Gradual onset Pain level max: 10 Pain level now: 10 Worst headache ever?: No: Worst headache ever? Location: Global Quality: Throbbing, Aching. No: Thunderclap, Stabbing Associated symptoms: Nausea, Vomiting. No: Fever, Stiff neck, Weakness, Numbness, Syncope, Seizure, Eye pain Improved by: Rest, Dark room Worsened by: Light, Noise Contributing factors: No: Anticoagulated, Possible carbon monoxide, Hypertens ion, Recent illness, Trauma Recently seen: Emergency Dept (Patient was seen here earlier today for same. Headache is improved after treatment. She went home and slept, when she awoke she began feeling anxious and the headache returned. She is concerned that this may be a reaction to the Imitrex. 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 Psych: Anxiety Musculoskeletal: None Derm: None - Past Surgical History Past Surgical History: No - Present Medications Home Medications: Ambulatory Orders Medication Instructions Recorded Confirmed Ibuprofen [Motrin] 800 mg PO Q8H PRN #30 tablet 02/07/18 Rizatriptan Benzoate [Rizatriptan] 0 mg 02/07/18 Valacyclovir HCl [Valacyclovir] 500 mg PO BID 2 Days #10 tablet 04/05/18 LORazepam [Ativan] 1 mg PO Q12H PRN #8 tablet 06/23/18 Ondansetron Odt [Zofran] 4 mg TL Q6H PRN #10 tablet 06/23/18 Butalb/Acetaminophen/Caffeine 1 cap PO Q6H PRN #30 capsule 08/12/18 [Fioricet 50-300-40 mg Capsule] HYDROmorphone [Dilaudid] 2 mg PO Q6H PRN #3 tablet 08/12/18 Nitrofurantoin Monohyd/M-Cryst 100 mg PO BID #10 capsule 08/12/18 [Macrobid 100 mg Capsule] Ondansetron Odt [Zofran] 4 mg TL Q6H PRN #10 tablet 08/12/18 diazePAM [Valium] 5 mg PO Q8H PRN #3 tablet 08/12/18 - Allergies Allergies/Adverse Reactions: Allergies Allergy/AdvReac Type Severity Reaction Status Date / Time diphenhydramine AdvReac Anxiety Verified 08/12/18 20:50 prochlorperazine AdvReac Hallucinati Verified 08/12/18 20:50 [From Compazine] ons prochlorperazine edisylate * AdvReac Hallucinati Verified 08/12/18 20:50 [From Compazine] ons prochlorperazine maleate * AdvReac Hallucinati Verified 08/12/18 20:50 [From Compazine] ons - Social History Does the pt smoke?: No Smoking Status: Never smoker Does the pt drink ETOH?: No Does the pt have substance abuse?: No - Immunizations Immunizations are current?: Yes - POLST Patient has POLST: No PD ED PE NORMAL - Vitals Vital signs reviewed: Yes - General General: Alert and oriented X 3, Well developed/nourished, Other (Appears anxious) - HEENT HEENT: Atraumatic, PERRL, EOMI, Moist mucous membranes - Neck Neck: Supple, no meningeal sign - Cardiac Cardiac: RRR, Strong equal pulses - Respiratory Respiratory: No respiratory distress, Clear bilaterally - Abdomen Abdomen: Soft, Non tender, Non distended - Derm Derm: Warm and dry, No rash - Extremities Extremities: No edema, No calf tenderness / cord - Neuro Neuro: Alert and oriented X 3, curriculum coordinator 2-12 intact, No motor deficit, No sensory deficit, Normal speech - Psych Psych: Normal mood, Normal affect Results - Vitals Vitals: Vital Signs - 24 hr 08/12/18 08/12/18 20:48 21:49 Temperature 37.1 C Heart Rate 125 H 96 Respiratory 18 16 Rate Blood Pressure 118/85 H 103/67 O2 Saturation 98 100 Oxygen O2 Source Room air PD MEDICAL DECISION MAKING - ED course Complexity details: re-evaluated patient, considered differential, d/w patient, d/w family ED course: 33-year-old female with her usual headache and anxiety. Feels better after Valium, Toradol and Dilaudid. Also given IV fluids. No evidence of subarachno id hemorrhage, tumor, Intracranial hemorrhage. Patient requesting to go home at this time. Request a small amount of pain medication for home. Patient and family counseled regarding signs and symptoms for which I believe and urgent re- evaluation would be necessary. Patient with good understanding of and agreement to plan and is comfortable going home at this time This document was made in part using voice recognition software. While efforts are made to proofread this document, sound alike and grammatical errors may occur. Departure - Departure Disposition: 01 Home, Self Care Clinical Impression: Migraine Qualifiers: Migraine type: unspecified Status migrainosus presence: without status migrainosus Intractability: not intractable Qualified Code(s): G43.909 - Migraine, unspecified, not intractable, without status migrainosus Condition: Good Instructions: ED Headache Migraine Follow-Up: your,doctor in 3 days [Other] Prescriptions: diazePAM [Valium] 5 mg PO Q8H PRN #3 tablet PRN Reason: Spasms HYDROmorphone [Dilaudid] 2 mg PO Q6H PRN #3 tablet PRN Reason: pain Comments: Return if you worsen. Follow-up with your doctor for further care. Drink plenty of fluids and rest. Do not drink alcohol or drive while on narcotic pain medicine. Note that many narcotic pain relievers also contain tylenol/acetaminophen. Please ensure that your total dose of acetaminophen from all sources does not exceed 3 grams (3000mg) per day. You may constipated on this medication, take a stool softener such as "Colace" twice a day while you are on it. Also recommend a [id number] laxative such as senna or MiraLAX any day that you do not have a bowel movement. If you received narcotic pain medication in the emergency department, do not drive or operate machinery for the next 24 hours.
[2018-08-12] MEDS ORDERED: HYDROmorphone 1 MG/ML CARPUJECT IVP STA (21:27)
[2018-08-12 22:19] VITALS: BP 109/69
== END 2018-08-12 22:20 | disposition home or self-care (01) ==
LOC: ED 20:42
DX: G43.909 Migraine, unspecified, not intractable, without status migrainosus (principal); N30.00 Acute cystitis without hematuria; F41.9 Anxiety disorder, unspecified
CPT/HCPCS: 81001; 81025; 87077; 87086; 87181; 96365; 96372; 96375; 99283; 99284; J0131; J1170; J2060; 96374

== ENCOUNTER 2019-02-24 14:17 | Emergency (ER) | payer BC, MEDICAID ==
[2019-02-24] MEDS ORDERED: HYDROmorphone 2 MG/ML VIAL IVP STA (14:45)
[2019-02-24] MEDS ORDERED: KETOROLAC 30 MG/ML VIAL IVP STA (14:45)
[2019-02-24] MEDS ORDERED: SODIUM CHLORIDE 0.9% 1,000 ML IV ONE (14:45)
[2019-02-24] MEDS ORDERED: LORazepam 2 MG/ML VIAL IVP STA (14:45)
--- NOTE | 2019-02-24 14:47 | ED Physician Documentation ---
PD HPI FOCAL NEURO - Stated complaint Stated Complaint: HEADACHE - Chief complaint Chief Complaint: Neuro - History obtained from History obtained from: Patient - History of Present Illness Timing - onset: Other (34-year-old woman with history of TMJ here with 2 days of kind of diffuse muscular pain and headache. She has a posterior headache also in the jaws and complains about pain of both shoulders and the upper chest wall. She had this many times before. Once was presumptively diagnosed with fibromyalgia. She does not carry that diagnosis specifically though.) Review of Systems Constitutional: reports: Myalgias, Fatigue. 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 : None Psych: Anxiety Musculoskeletal: None Derm: None - Past Surgical History Past Surgical History: No - Present Medications Home Medications: Ambulatory Orders Medication Instructions Recorded Confirmed Ibuprofen [Motrin] 800 mg PO Q8H PRN #30 tablet 02/07/18 Rizatriptan Benzoate [Rizatriptan] 0 mg 02/07/18 Valacyclovir HCl [Valacyclovir] 500 mg PO BID 2 Days #10 tablet 04/05/18 LORazepam [Ativan] 1 mg PO Q12H PRN #8 tablet 06/23/18 Ondansetron Odt [Zofran] 4 mg TL Q6H PRN #10 tablet 06/23/18 Butalb/Acetaminophen/Caffeine 1 cap PO Q6H PRN #30 capsule 08/12/18 [Fioricet 50-300-40 mg Capsule] Nitrofurantoin Monohyd/M-Cryst 100 mg PO BID #10 capsule 08/12/18 [Macrobid 100 mg Capsule] Ondansetron Odt [Zofran] 4 mg TL Q6H PRN #10 tablet 08/12/18 diazePAM [Valium] 5 mg PO Q8H PRN #3 tablet 08/12/18 Cyclobenzaprine [Flexeril] 10 mg PO TID PRN #20 tablet 02/24/19 Meloxicam [Mobic] 7.5 mg PO BID PRN #20 tablet 02/24/19 - Allergies Allergies/Adverse Reactions: Allergies Allergy/AdvReac Type Severity Reaction Status Date / Time diphenhydramine AdvReac Anxiety Verified 02/24/19 14:24 prochlorperazine AdvReac Hallucinati Verified 02/24/19 14:24 [From Compazine] ons prochlorperazine edisylate * AdvReac Hallucinati Verified 02/24/19 14:24 [From Compazine] ons prochlorperazine maleate * AdvReac Hallucinati Verified 02/24/19 14:24 [From Compazine] ons - Social History Does the pt smoke?: No Smoking Status: Never smoker Does the pt drink ETOH?: No Does the pt have substance abuse?: No - Immunizations Immunizations are current?: Yes - POLST Patient has POLST: No PD ED PE NORMAL - Vitals Vital signs reviewed: Yes - General General: Alert and oriented X 3 - HEENT HEENT: PERRL, EOMI, Pharynx benign - Neck Neck: Supple, no meningeal sign, No bony TTP - Cardiac Cardiac: RRR, No murmur - Respiratory Respiratory: No respiratory distress, Clear bilaterally - Abdomen Abdomen: Non tender - Extremities Extremities: Other (She has a lot of muscular tenderness of the back the shoulders the sternocleidomastoids even the upper thighs.) - Neuro Neuro: Alert and oriented X 3, technology integration specialist 2-12 intact, Normal speech Eye Opening: Spontaneous Motor: Obeys Commands Verbal: Oriented GCS Score: 15 - Psych Psych: Normal mood, Normal affect Results - Vitals Vitals: Vital Signs - 24 hr 02/24/19 14:22 Temperature 36.3 C L Heart Rate 92 Respiratory 20 Rate Blood Pressure 111/82 H O2 Saturation 100 Oxygen O2 Source Room air PD MEDICAL DECISION MAKING - ED course ED course: 34-year-old woman presents with a recurrent syndrome of body aches, headache, and TMJ pain. Examination is suggestive of fibromyalgia. There is no evidence of meningitis, subarachnoid hemorrhage. She was given medications in a stepwise fashion similar to medication she is been given on prior visits with improvement. Departure - Departure Disposition: 01 Home, Self Care Clinical Impression: Neck muscle spasm, Facial pain Tension type headache Qualifiers: Headache chronicity pattern: acute headache Intractability: not intractable Qualified Code(s): G44.209 - Tension-type headache, unspecified, not intractable Condition: Good Record reviewed to determine appropriate education?: Yes Instructions: ED Cephalgia Unspecified Prescriptions: Cyclobenzaprine [Flexeril] 10 mg PO TID PRN #20 tablet PRN Reason: Spasms Meloxicam [Mobic] 7.5 mg PO BID PRN #20 tablet PRN Reason: Pain Comments: As discussed, some facets of your presentation are consistent with fibromyalgia. Discussed this with your physician in follow-up. Return for new worsening symptoms.
[2019-02-24] MEDS ORDERED: SUMAtriptan 6 MG/0.5 ML VIAL SUBQ STA (15:40)
[2019-02-24 15:49] VITALS: BP 110/73
[2019-02-24] MEDS ORDERED: ONDANSETRON ODT 4 MG TABLET TL STA (15:52)
== END 2019-02-24 15:56 | disposition home or self-care (01) ==
LOC: ED 14:17
DX: M62.838 Other muscle spasm (principal); G44.209 Tension-type headache, unspecified, not intractable
CPT/HCPCS: 96361; 96372; 96374; 99283; J1170; J2060; Q0162

== ENCOUNTER 2019-03-06 09:00 | Emergency (ER) | payer BC ==
[2019-03-06] MEDS ORDERED: ONDANSETRON 4 MG/2 ML VIAL IVP STA (10:02)
[2019-03-06] MEDS ORDERED: DEXAMETHASONE 10 MG/ML VIAL IVP STA (10:02)
[2019-03-06] MEDS ORDERED: KETOROLAC 30 MG/ML VIAL IVP STA (10:02)
[2019-03-06] MEDS ORDERED: SODIUM CHLORIDE 0.9% 1,000 ML IV ONE (10:02)
[2019-03-06] MEDS ORDERED: METOCLOPRAMIDE 10 MG/2 ML VIAL IVP STA (10:03)
--- NOTE | 2019-03-06 10:05 | ED Physician Documentation ---
PD HPI HEADACHE - Stated complaint Stated Complaint: HEADACHE/JAW PX - Chief complaint Chief Complaint: Neuro - History obtained from History obtained from: Patient, Family - History of Present Illness Timing - onset: How many days ago (2) Timing - onset during: Rest Timing - duration: Days (2) Timing - details: Gradual onset, Still present Location: Front, Right Quality: Throbbing Associated symptoms: Stiff neck, Nausea. No: Weakness, Numbness, Syncope, Seizure, Eye pain, Vision changes Improved by: Rest, Dark room, Quiet, Meds Contributing factors: No: Anticoagulated Similar symptoms before: Diagnosis (TMJ with migraine) Recently seen: Emergency Dept - Additional information Additional information: 34-year-old female who has had a problem with right-sided headaches for the past 5 years has periodically debilitating headaches and was required rescue about 6 times per year. She states that she has recently gone into see the dentist and has been diagnosed with a malaligned jaw and TMJ on the right side. She has pain in the right jaw at the TMJ and she has spasm in the muscles of her neck. On the right side. She does have some photophobia and some nausea associated with this.She has had some problems with Compazine and Benadryl. Review of Systems Constitutional: denies: Fever Eyes: denies: Decreased vision Ears: denies: Ear pain Nose: reports: Congestion Throat: reports: Dental pain / toothache. denies: Sore throat Cardiac: denies: Chest pain / pressure, Palpitations Respiratory: denies: Dyspnea, Cough GI: reports: Nausea, Vomiting. 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 : None Psych: Anxiety Musculoskeletal: None Derm: None - Past Surgical History Past Surgical History: No - Present Medications Home Medications: Ambulatory Orders Medication Instructions Recorded Confirmed Ibuprofen [Motrin] 800 mg PO Q8H PRN #30 tablet 02/07/18 Rizatriptan Benzoate [Rizatriptan] 0 mg 02/07/18 Valacyclovir HCl [Valacyclovir] 500 mg PO BID 2 Days #10 tablet 04/05/18 LORazepam [Ativan] 1 mg PO Q12H PRN #8 tablet 06/23/18 Ondansetron Odt [Zofran] 4 mg TL Q6H PRN #10 tablet 06/23/18 Butalb/Acetaminophen/Caffeine 1 cap PO Q6H PRN #30 capsule 08/12/18 [Fioricet 50-300-40 mg Capsule] Nitrofurantoin Monohyd/M-Cryst 100 mg PO BID #10 capsule 08/12/18 [Macrobid 100 mg Capsule] Ondansetron Odt [Zofran] 4 mg TL Q6H PRN #10 tablet 08/12/18 diazePAM [Valium] 5 mg PO Q8H PRN #3 tablet 08/12/18 Cyclobenzaprine [Flexeril] 10 mg PO TID PRN #20 tablet 02/24/19 Meloxicam [Mobic] 7.5 mg PO BID PRN #20 tablet 02/24/19 Oxycodone HCl/Acetaminophen 1 - 2 each PO Q6H PRN #14 tablet 03/06/19 [Percocet 5-325 mg Tablet] - Allergies Allergies/Adverse Reactions: Allergies Allergy/AdvReac Type Severity Reaction Status Date / Time diphenhydramine AdvReac Anxiety Verified 02/24/19 14:24 prochlorperazine AdvReac Hallucinati Verified 02/24/19 14:24 [From Compazine] ons prochlorperazine edisylate * AdvReac Hallucinati Verified 02/24/19 14:24 [From Compazine] ons prochlorperazine maleate * AdvReac Hallucinati Verified 02/24/19 14:24 [From Compazine] ons - Social History Does the pt smoke?: No Smoking Status: Never smoker Does the pt drink ETOH?: No Does the pt have substance abuse?: No - Immunizations Immunizations are current?: Yes - POLST Patient has POLST: No PD ED PE NORMAL - Vitals Vital signs reviewed: Yes (normal ) - General General: Alert and oriented X 3, Well developed/nourished, Other (The patient appears to be in pain with business integration manager tone and falt affect) - HEENT HEENT: Atraumatic, PERRL, EOMI, Ears normal, Other (dry mucous membranes, pain at the TMJ specifically tender. 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 2-12 intact, No motor deficit, No sensory deficit, Normal speech Eye Opening: Spontaneous Motor: Obeys Commands Verbal: Oriented GCS Score: 15 - Psych Psych: Other (mood is painful and the affect is flat ) Results - Vitals Vitals: Vital Signs - 24 hr 03/06/19 03/06/19 09:07 12:20 Temperature 36.8 C Heart Rate 98 99 Respiratory 18 20 Rate Blood Pressure 103/77 114/73 O2 Saturation 97 100 Oxygen O2 Source Room air PD MEDICAL DECISION MAKING - ED course Complexity details: reviewed old records, re-evaluated patient, considered differential, d/w patient, d/w family ED course: 34-year-old female with chronic headache and right TMJ appears to have significant amount of spasm in the trapezius at the insertion to the occiput and pain over the TMJ. She does have malalignment of her jaw and she is going to be seen the maxillofacial surgeon. Today she requires rescue and we attempted to do a cocktail of migraine medications we are unable to establish venous access and medications are eventually given IM. She is given both metoclopramide dexamethasone Toradol and Zofran. She has a dystonic reaction to the metoclopramide with significant akesthesia and feeling she needs to leave the room immediately. She has improvement in the headache but still has the pain in the jaw. She is rescued from this severe akesthesia with ativan 2mg IM. She recalls that if she takes Benadryl she will kick her legs around continuously for the rest of the night. She also states that she remembers a similar reaction to this with Compazine previously. She has taken Flexeril without relief of her symptoms but notes that she was very restless and lablie and unable to sleep all night last night. Departure - Departure Disposition: 01 Home, Self Care Clinical Impression: Neck muscle spasm, Dystonic drug reaction Tension type headache Qualifiers: Headache chronicity pattern: acute headache Intractability: not intractable Qualified Code(s): G44.209 - Tension-type headache, unspecified, not intractable Condition: Stable Instructions: ED Headache Tension, ED Drug React Dystonic Adverse Follow-Up: Your, doctor [Other] Prescriptions: Oxycodone HCl/Acetaminophen [Percocet 5-325 mg Tablet] 1 - 2 each PO Q6H PRN #14 tablet PRN Reason: pain Comments: Today it appears you had a dystonic reaction to metoclopramide. This is in a class of medications similar to Compazine Benadryl and Flexeril. I would recommend you stop taking the Flexeril. We will flag your chart as allergic to metoclopramide.
[2019-03-06] MEDS ORDERED: CHERRY SYRUP 10 ML UDC PO ONE (11:46)
[2019-03-06] MEDS ORDERED: METOCLOPRAMIDE 10 MG/2 ML VIAL IM STA (11:46)
[2019-03-06] MEDS ORDERED: DEXAMETHASONE 10 MG/ML VIAL PO STA (11:46)
[2019-03-06] MEDS ORDERED: ONDANSETRON ODT 4 MG TABLET TL STA (11:47)
[2019-03-06] MEDS ORDERED: KETOROLAC 60 MG/2 ML VIAL IM STA (11:47)
[2019-03-06 12:21] VITALS: BP 114/73
[2019-03-06] MEDS ORDERED: LORazepam 2 MG/ML VIAL ONE (12:39)
[2019-03-06] MEDS ORDERED: LORazepam 2 MG/ML VIAL IM STA (12:40)
== END 2019-03-06 12:50 | disposition home or self-care (01) ==
LOC: ED 09:00
DX: M62.838 Other muscle spasm (principal); R25.8 Other abnormal involuntary movements; T45.0X5A Adverse effect of antiallergic and antiemetic drugs, initial encounter; G44.209 Tension-type headache, unspecified, not intractable
CPT/HCPCS: 96372; 99284; 99285; A9270; J2060; J2765; Q0162

== ENCOUNTER 2019-04-16 06:12 | Day surgery (SDC) | payer BC ==
[2019-04-16] MEDS ORDERED: KETOROLAC 30 MG/ML VIAL IVP ONE (06:13)
[2019-04-16] MEDS ORDERED: ACETAMINOPHEN 1,000 MG/100 ML 100 ML IV ONE (06:13)
[2019-04-16] MEDS ORDERED: CEFAZOLIN SODIUM IN 0.9 % NACL 2 GM/100 ML BAG IV ONE (06:18)
[2019-04-16] MEDS ORDERED: LACTATED RINGERS 1,000 ML IV ONE ×3 (06:22→12:40)
[2019-04-16 06:37] LABS: HCG UR QUAL NEGATIVE
--- NOTE | 2019-04-16 07:02 | ANESTHESIA ---
Pre-Anesthesia VS, & Labs - Diagnosis left jaw pain, arthralgia of left TMJ - Procedure TMJ Arthroplasty Vital Signs: Temp Pulse Resp BP Pulse Ox 36.0 C L 63 16 128/70 100 04/16/19 06:38 04/16/19 06:38 04/16/19 06:38 04/16/19 06:38 04/16/19 06:38 Height 5 ft 4 in Weight (kg) 53 kg Body Mass Index 22.1 - Is Patient ?: No Home Medications and Allergies Home Medications: Ambulatory Orders Methocarbamol 750 mg PO Q6H PRN 04/11/19 Methocarbamol 750 mg PO Q6H PRN 04/11/19 Allergies/Adverse Reactions: Allergies Allergy/AdvReac Type Severity Reaction Status Date / Time cyclobenzaprine Allergy Anxiety Verified 04/11/19 09:36 [From Flexeril] metoclopramide [From Reglan] Allergy Anxiety, Verified 04/11/19 09:34 hallucinations diphenhydramine AdvReac Anxiety Verified 02/24/19 14:24 prochlorperazine AdvReac Hallucinati Verified 02/24/19 14:24 [From Compazine] ons prochlorperazine edisylate * AdvReac Hallucinati Verified 02/24/19 14:24 [From Compazine] ons prochlorperazine maleate * AdvReac Hallucinati Verified 02/24/19 14:24 [From Compazine] ons Anes History & Medical History - Anesthetic History Anesthesia Complications: reports: No previous complications Family history of Anesthesia Complications: Denies Family history of Malignant Hyperthermia: Denies - Medical History Cardiovascular: reports: None Pulmonary: reports: None Gastrointestinal: reports: None, Other (remote history " i thought i did have ulcers" but denies any recent GI problems) Urinary: reports: None Neuro: reports: None, Migraines Musculoskeletal: reports: None Endocrine/Autoimmune: reports: None Blood Disorders: reports: None Skin: reports: None Smoking Status: Never smoker Psychosocial: reports: Anxiety - Surgical History General: Other (abcesses InD's in the past) Exam General: Alert, Oriented x3, Cooperative, No acute distress Dental: WNL Mouth Openin Fingerbreadth (FB) Neck Mobility: Normal Mallampati classification: IV Thyromental Distance: less than 4 cm (limited neck extension due to "tension in the left jaw") Respiratory: Lungs clear, Normal breath sounds, No respiratory distress, No accessory muscle use Cardiovascular: Regular rate, Normal S1, Normal S2, No murmurs Abdomen: Normal bowel sounds, Soft, No tenderness, No hepatospenomegaly, No masses Extremities: No clubbing, No cyanosis, No edema, Normal pulses, No tenderness/swelling Neurological: Normal gait, Normal speech, Strength at 5/5 X4 ext, Normal tone, Sensation intact, Cranial nerves 3-12 NL, Reflexes 2+ Mental/Cognitive Status: Alert/Oriented X3, Normal for patient Cognitive Status: Within normal limits Plan Anesthesia Type: General Consent for Procedure(s) Verified and Reviewed: Yes Code Status: Attempt Resuscitation ASA classification: 1-Healthy patient Is this case an emergency?: No
[2019-04-16] MEDS ORDERED: EPINEPHrine 1 MG/ML AMP ONE (07:12)
[2019-04-16] MEDS ORDERED: LIDOCAINE MPF 2%-EPI 1:200000 20 ML VIAL ONE (07:13)
[2019-04-16] MEDS ORDERED: CHLORHEXIDINE GLUCONATE 15 ML UDC PO ONE ×2 (07:18→08:40)
[2019-04-16] MEDS ORDERED: MIDAZOLAM 2 MG/2 ML VIAL ONE (08:03)
[2019-04-16] MEDS ORDERED: OXYMETAZOLINE HCL 100 SPRAYS BOTTLE NAS ONE (08:19)
[2019-04-16] MEDS ORDERED: MINERAL OIL/PETROLAT OPHTH OINT EACHEYE ONE (08:40)
[2019-04-16] MEDS ORDERED: SUGAMMADEX 200 MG/2 ML VIAL IVP ONE (10:33)
[2019-04-16] MEDS ORDERED: LIDOCAINE MPF 2%-EPI 1:200000 20 ML VIAL SUBQ ONE ×2 (10:52→16:02)
[2019-04-16] MEDS ORDERED: VANCOMYCIN 1 GM VIAL ONE (15:01)
[2019-04-16] MEDS ORDERED: BACITRACIN ZINC OINT 14 GM TOP ONE (16:09)
[2019-04-16] MEDS: fentaNYL 100 MCG/2 ML VIAL ONE ×2 (16:44→16:49)
[2019-04-16] MEDS: HYDROmorphone 1 MG/ML CARPUJECT ONE ×2 (17:10→17:15)
[2019-04-16] MEDS ORDERED: ONDANSETRON 4 MG/2 ML VIAL IVP PRN (17:18)
[2019-04-16] MEDS ORDERED: ONDANSETRON 4 MG/2 ML VIAL ONE (17:18)
[2019-04-16] MEDS ORDERED: PROMETHAZINE 25 MG/1 ML VIAL ONE (17:25)
[2019-04-16] MEDS ORDERED: SODIUM CHLORIDE FLUSH 0.9% 10 ML SYRINGE ONE ×2 (19:06→22:30)
[2019-04-16] MEDS: HYDROmorphone 2 MG/ML VIAL IVP PRN ×2 (19:13→22:34)
[2019-04-16] MEDS: AMPICILLIN/SULBACTAM 3 GM in SODIUM CHLORIDE 0.9% MINIBAG 100 ML IV SCH ×2 (19:28→23:43)
--- NOTE | 2019-04-16 19:40 | OPERATIVE REPORT ---
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 POSTOPERATIVE DIAGNOSIS: Left temporomandibular joint osteoarthritis, trismus and pain of the left jaw. PROCEDURE PERFORMED: Total joint arthroplasty of the left temporomandibular joint with joint replacement with prosthetic implant. PRIMARY SURGEON: Felton Ibrahim DDS PLANER OFFBEARER: Ashlie. DISTRIBUTOR PUBLICATIONS: Lovely Mata CRNA. ANESTHESIA TYPE: General anesthesia via nasal endotracheal intubation. IMPLANTS: All Biomet implants were used. A left 50 mm narrow standard condylar implant was placed and a left medium fossa was placed. Five screws were placed in the fossa and 5 screws were placed in the condylar component. SPECIMENS: None. ESTIMATED BLOOD LOSS: 250 mL INTRAVENOUS FLUIDS: 150 mL DRAINS, PACKS, CATHETERS: A Maldonado catheter was placed during the case and removed prior to emergence from anesthesia. INDICATIONS FOR PROCEDURE: The patient is a 34-year-old female who presented to my office with severe pain and trismus. Radiographic and clinical examination was consistent with severe end-stage disease of the left temporomandibular joint. It was decided that a total joint arthroplasty was necessary to alleviate the patient's pain and improve her function. The risks, benefits and alternatives of this plan were discussed with the patient including pain, swelling, bleeding, nerve damage with paralysis of the face, nerve damage with numbness of the face, especially the lip, chin or tongue, failure of the hardware, malocclusion, nonunion, need for further surgery, scarring, poor cosmesis, salivary fistula, and failure of the surgery to resolve the patient's pain problems. Adequate time was given to answer all questions, and informed consent was obtained. DESCRIPTION OF PROCEDURE: The patient was brought to the main operating room and placed in a supine position on the operating table. General anesthesia was induced by the anesthesia team and the airway was secured with a nasal endotracheal tube. The tube was secured additionally to the nasal septum with a 2-0 silk suture. The right eye was protected with Lacri-Lube and a Tegaderm. The left eye was protected with Lacri-Lube and a corneal shield. Before the patient was prepped, hardware was placed in the mouth. A maxillary hybrid arch bar was placed, held in place by 4 screws, and the mandibular hybrid arch bar was placed, held in place by 4 screws. A throat pack was placed prior to the placement of this hardware. The patient was prepped and draped in standard sterile fashion for a total joint arthroplasty of the left temporomandibular joint. The arms were tucked and all pressure points were padded and checked. A formal timeout was executed. Attention was directed to the left submandibular area. An incision was made in a skin fold with a #15 blade. A Bovie was used to control bleeding. Dissected sharply down to the platysma muscle and then blunt dissection with nerve stimulation was performed and carried out down to the pterygomasseteric sling which was incised sharply. The masseter was reflected off the mandible in a subperiosteal plane, exposing the ramus and angle of the left mandible. A moist Ray-Choco was packed into the wound. Attention was then directed to the left preauricular area. An incision was made in a cartilaginous plane to avoid bleeding and nerves. A combination of sharp and blunt dissection was performed through a standard preauricular incision, with an anterior release in the superior aspect where the temporalis muscle can be seen underneath the incision. This was performed using electrocautery to control hemostasis and using a nerve stimulator to check and avoid damage to the temporal branch of the facial nerve. Once the dissection was carried down to the capsule, the capsule was incised sharply. There was some bleeding during this incision and this bleeding was controlled with bipolar. The superior aspect of the joint was dissected first, exposing the bony aspect of the fossa and cleaning off all the scar tissue and adhesions that were attached to it. The disk was then identified and removed using a Bovie. The condyle was then identified and dissected around in a subperiosteal plane. A bone clamp was then placed on the inferior border of the mandible, and a bur was used to remove a portion of the condyle after the condylar neck retractors had been placed to protect the vessels deep to the condyle. The bur was only past about three-fourths [address] way through the condyle and then a T-bar osteotome was used to split off the remaining bit of condyle. Once the condyle was now mobilized from the rest of the mandible, it was grasped with a Aide, and a Bovie tip was carefully used to peel the lateral pterygoid muscle off of the pterygoid fovea and remove the condylar head completely. The mandible was then gently mobilized superiorly to bring the remaining condylar neck into the field of view. It should be noted that initially upon viewing the condylar head and neck, the neck was appreciated to be quite short with a very short distance from the top of the condylar head down to the coronoid notch, and the condylar head was very deformed. Now, with the condylar head removed, it was easy to move the neck up into view into the surgical field, replace the condylar neck retractors, and then repeat the previous procedure that was performed by using a galdino to remove the lateral plate of bone and then using a T-bar osteotome to crack off the diseased portion of condylar neck and remove it from the field. A reciprocating rasp was used to achieve smooth margins of the osteotomy. A condylar fossa trial was tried into place. A medium size was used. There was some interference between the condylar notch and the anterior portion of the fossa, so that portion was reduced slightly using a fissure bur. Now, there was good clearance and a [place] could easily be passed. Attention was then directed to the patient's mouth and the patient was placed into intermaxillary fixation. After this, scrub was broken and a sterile scrub was repeated. Attention was directed back to the left preauricular area, where it was confirmed that there was adequate clearance between the implant and the implant in the coronoid notch. Now, a fossa trial was placed and the size that was arrived at was a 50 mm narrow fossa implant. Care was taken to adapt the fossa implant to the posterior aspect of the mandible and to seat the head of the implant posteriorly inside of the fossa. The screw access was too difficult from the existing incision, so a small trocar incision was made just inferior to the left earlobe. This was made with a #15 blade and then by passing the trocar instruments bluntly through the tissue. This trocar incision was used to place 2 screws down to hold the condyle implant in place. Once this was done, attention was directed back to the patient's mouth. The IMF was released and good occlusion was confirmed. At this point, scrub was broken again and a sterile scrub was repeated. Attention was directed back to the left preauricular incision in the left submandibular incision. The remaining 3 screws were placed in the fossa implant and remaining screws were placed in the condylar implant for a total of 5 screws in each. Now that the hardware was stable, the area was irrigated copiously with antibiotic impregnated sterile saline. The wound was then closed in layers with the deep layers being closed with 4-0 Vicryl suture and the skin being closed with 5-0 Prolene suture. The patient's face was cleansed. The eyes were rinsed with BSS. The throat pack was removed and the mouth was cleansed. The hardware that was placed inside the mouth was left in place to allow for continued guidance of occlusion during postoperative appointments. The suture was removed from the nasal septum. Care of the patient was returned to the anesthesia team for uneventful emergence from anesthesia and extubation. She was extubated in the PACU. After she was extubated in the PACU and also prior to her extubation in the PACU, she was found to be in very stable condition. COMPLICATIONS: None. TD: 04/16/2019 17:56 SALAZAR
[2019-04-16] MEDS: IBUPROFEN 100 MG/5 ML UDC PO SCH ×2 (22:47→23:47)
[2019-04-16] MEDS: CHLORHEXIDINE GLUCONATE 15 ML UDC PO SCH (22:49)
[2019-04-16] MEDS: oxyCODONE 10 MG/0.5 ML SYRINGE PO PRN (23:44)
[2019-04-17] MEDS ORDERED: SODIUM CHLORIDE FLUSH 0.9% 10 ML SYRINGE ONE ×5 (02:17→13:06)
[2019-04-17] MEDS: HYDROmorphone 2 MG/ML VIAL IVP PRN ×4 (02:27→13:13)
[2019-04-17] MEDS: oxyCODONE 10 MG/0.5 ML SYRINGE PO PRN ×2 (05:07→09:15)
[2019-04-17] MEDS: AMPICILLIN/SULBACTAM 3 GM in SODIUM CHLORIDE 0.9% MINIBAG 100 ML IV SCH ×2 (05:17→13:12)
[2019-04-17] MEDS: IBUPROFEN 100 MG/5 ML UDC PO SCH ×2 (05:27→13:11)
[2019-04-17] MEDS: CHLORHEXIDINE GLUCONATE 15 ML UDC PO SCH (09:15)
[2019-04-17 13:17] VITALS: BP 93/51
== END 2019-04-17 13:55 | disposition home or self-care (01) ==
LOC: SDS 06:12 → MS2 19:10 → SDS 04-17 13:55
PROVIDERS: ATTEND Dentist Oral and Maxillofacial Surgery
PROC: 0RRD0JZ Replacement of Left Temporomandibular Joint with Synthetic Substitute, Open Approach (ICD-10-PCS; principal; 2019-04-16 07:30)
DX: M26.69 Other specified disorders of temporomandibular joint (principal); G43.909 Migraine, unspecified, not intractable, without status migrainosus; S09.93XS Unspecified injury of face, sequela; X58.XXXS Exposure to other specified factors, sequela; Z79.899 Other long term (current) drug therapy
CPT/HCPCS: 21243; 81025; A9270; C1713; C1776; J0131; J0690; J1170; J3370; J7120

== ENCOUNTER 2019-04-22 13:40 | Emergency (ER) | payer BC ==
[2019-04-22] MEDS ORDERED: SODIUM CHLORIDE 0.9% 1,000 ML IV ONE ×2 (15:05)
[2019-04-22] MEDS ORDERED: DEXAMETHASONE 10 MG/ML VIAL IVP STA (15:17)
[2019-04-22] MEDS ORDERED: HYDROmorphone 1 MG/ML CARPUJECT IVP STA ×2 (15:18→18:18)
--- NOTE | 2019-04-22 15:21 | ED Physician Documentation ---
History of Present Illness - Stated complaint Stated Complaint: POST OP COMPLICATIONS/MORALES - Chief complaint Chief Complaint: Heent - History obtained from History obtained from: Patient - History of Present Illness Timing: Today Pain level max: 9 Pain level now: 8 - Additonal information Additional information: 34-year-old female is status post left TMJ surgery approximately 5 days ago. She ran out of her Dilaudid this morning on a scheduled for a refill in the morning. She states that she has had swelling and pain to the left side of the face today. No fevers. No redness. No drainage. She is still on oxycodone at home. She is also on Valium at home. Worse with palpation and movement. Better with rest. Review of Systems Ten Systems: 10 systems reviewed and negative Constitutional: denies: Fever, Chills Nose: denies: Rhinorrhea / runny nose, Congestion Respiratory: denies: Cough GI: denies: Abdominal Pain, Nausea, Vomiting, Diarrhea : denies: Now EGA Skin: denies: Rash Musculoskeletal: denies: Back pain PD PAST MEDICAL HISTORY - Past Medical History Past Medical History: Yes Cardiovascular: None Respiratory: None Neuro: Migraines Endocrine/Autoimmune: None GI: None IMPORT MANAGER: None : None HEENT: Chronic vision loss Psych: Anxiety, Panic attacks, Post traumatic stress disorder Musculoskeletal: None Derm: None - Past Surgical History Past Surgical History: No General: Other HEENT: Other - Present Medications Home Medications: Ambulatory Orders Medication Instructions Recorded Confirmed Ondansetron Odt [Zofran] 4 mg TL Q6H PRN #10 tablet 08/12/18 04/22/19 diazePAM [Valium] 5 mg PO Q8H PRN #3 tablet 08/12/18 04/22/19 Oxycodone HCl/Acetaminophen 1 - 2 each PO Q6H PRN #14 tablet 03/06/19 04/16/19 [Percocet 5-325 mg Tablet] Methocarbamol 750 mg PO Q6H PRN 04/11/19 04/16/19 - Allergies Allergies/Adverse Reactions: Allergies Allergy/AdvReac Type Severity Reaction Status Date / Time cyclobenzaprine Allergy Anxiety Verified 04/22/19 13:57 [From Flexeril] metoclopramide [From Reglan] Allergy Anxiety, Verified 04/22/19 13:57 hallucinations diphenhydramine AdvReac Anxiety Verified 04/22/19 13:57 ketamine AdvReac Anxiety Verified 04/22/19 18:46 prochlorperazine AdvReac Hallucinati Verified 04/22/19 13:57 [From Compazine] ons prochlorperazine edisylate * AdvReac Hallucinati Verified 04/22/19 13:57 [From Compazine] ons prochlorperazine maleate * AdvReac Hallucinati Verified 04/22/19 13:57 [From Compazine] ons - Social History Does the pt smoke?: No Smoking Status: Never smoker Does the pt drink ETOH?: No Does the pt have substance abuse?: No - Immunizations Immunizations are current?: Yes - POLST Patient has POLST: No PD ED PE NORMAL - Vitals Vital signs reviewed: Yes - General General: Alert and oriented X 3, No acute distress, Well developed/nourished - HEENT HEENT: PERRL, Ears normal, Moist mucous membranes, Pharynx benign, Other (Mild swelling to the left side of the face. Sutures are clean dry and intact. 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, No motor deficit, No sensory deficit, Normal speech - Psych Psych: Normal mood, Normal affect Results - Vitals Vitals: Vital Signs - 24 hr 04/22/19 04/22/19 13:57 18:38 Temperature 36.5 C 36.4 C L Heart Rate 112 H 97 Respiratory 22 20 Rate Blood Pressure 90/74 102/65 O2 Saturation 100 98 Oxygen O2 Source Room air - Labs Labs: Laboratory Tests 04/22/19 04/22/19 15:10 15:10 WBC 4.8 RBC 3.32 L Hgb 9.7 L Hct 30.3 L MCV 91.3 MCH 29.2 MCHC 32.0 RDW 13.2 Plt Count 269 MPV 9.6 Neut # (Auto) 2.6 Lymph # (Auto) 1.4 L Rhea # (Auto) 0.6 Eos # (Auto) 0.2 Baso # (Auto) 0.0 Absolute Nucleated RBC 0.00 Nucleated RBC % 0.0 Sodium 137 Potassium 4.0 Chloride 101 Carbon Dioxide 29 Anion Gap 7.0 BUN 9 Creatinine 0.6 Estimated GFR (MDRD) 114 Glucose 101 H Calcium 9.1 PD MEDICAL DECISION MAKING - ED course Complexity details: reviewed results, re-evaluated patient, considered differential, d/w patient, d/w reservoir engineering consultant (Discussed the case with Dr. Harrison, recommends pain control and steroids. She is going to follow-up in the office tomorrow for her medication refill and can be rechecked at that time) ED course: Pain well controlled in the emergency department. It was initially difficult to get this under control. No signs of infection. Dr. Flynn did come and see the patient after his surgery was over. He wrote her a refill of Dilaudid tonight. He will follow-up with her as an outpatient. Patient is comfortable with this plan. Patient counseled regarding signs and symptoms for which I believe and urgent re-evaluation would be necessary. Patient with good understanding of and agreement to plan and is comfortable going home at this time This document was made in part using voice recognition software. While efforts are made to proofread this document, sound alike and grammatical errors may occur. Departure - Departure Disposition: 01 Home, Self Care Clinical Impression: Postoperative pain Condition: Good Instructions: ED Post Op Pain Follow-Up: BENJAMIN FLYNN [Physician No Access] - Comments: Follow-up with Dr. Flynn as scheduled. Return if you worsen. He wrote a Dilaudid prescription for you tonight. Discharge Date/Time: 04/22/19 18:45
[2019-04-22 15:34] LABS: CALCIUM 9.1 mg/dL (8.5-10.3); CREATININE 0.6 mg/dL (0.4-1.0)
[2019-04-22] MEDS ORDERED: ONDANSETRON 4 MG/2 ML VIAL IVP STA ×2 (15:40→16:55)
[2019-04-22 15:45] LABS: BASOPHILS % (AUTO) 0.6 %; EOSINOPHILS # (AUTO) 0.2 10^3/uL (0.0-0.7); EOSINOPHILS % (AUTO) 3.1 %; HGB - HEMOGLOBIN 9.7 g/dL (12.0-16.0); LYMPHOCYTES # (AUTO) 1.4 10^3/uL (1.5-3.5); LYMPHOCYTES % (AUTO) 29.4 %; MEAN CORPUSCULAR HEMOGLOBIN 29.2 pg (27.0-31.0); MEAN CORPUSCULAR VOLUME 91.3 fL (81.0-99.0); MEAN PLATELET VOLUME 9.6 fL (7.9-10.8); MONOCYTES # (AUTO) 0.6 10^3/uL (0.0-1.0); MONOCYTES % (AUTO) 11.5 %; NEUTROPHILS # (AUTO) 2.6 10^3/uL (1.5-6.6); NEUTROPHILS % (AUTO) 55.2 %; PLT - PLATELET COUNT 269 10^3/uL (130-450); RED BLOOD COUNT 3.32 10^6/uL (4.20-5.40); RED CELL DISTRIBUTION WIDTH 13.2 % (12.0-15.0); WHITE BLOOD COUNT 4.8 x10^3/uL (4.8-10.8)
[2019-04-22] MEDS ORDERED: KETOROLAC 30 MG/ML VIAL IVP STA (16:09)
[2019-04-22] MEDS ORDERED: KETAMINE 500 MG/10 ML VIAL IVP STA (16:31)
[2019-04-22 18:39] VITALS: BP 102/65
== END 2019-04-22 18:45 | disposition home or self-care (01) ==
LOC: ED 13:40
DX: G89.18 Other acute postprocedural pain (principal); R22.0 Localized swelling, mass and lump, head
CPT/HCPCS: 36415; 80048; 85025; 96361; 96374; 96375; 96376; 99284; 99285; J1170

== ENCOUNTER 2021-08-13 08:00 | Outpatient (CLI) | payer BC ==
[2021-08-13 20:12] LABS: BILIRUBIN,URINE NEGATIVE (NEGATIVE); GLUCOSE, URINE (UA) NEGATIVE (NEGATIVE); KETONES,URINE (UA) TRACE mg/dL (NEGATIVE); LEUKOCYTE ESTERASE, URINE TRACE (NEGATIVE); NITRITE,URINE NEGATIVE (NEGATIVE); OCCULT BLOOD,URINE TRACE-INTA (NEGATIVE); PH,URINE 7.5 PH (5.0-7.5); PROTEIN,URINE NEGATIVE (NEGATIVE); UROBILINOGEN,URINE 0.2 (NORMAL) E.U./dL (NORMAL)
[2021-08-13 20:30] LABS: AMORPHOUS SEDIMENT,UR Marked /LPF; BACTERIA,URINE Few /HPF (None Seen); CLARITY,URINE CLOUDY (CLEAR); RBC,URINE 0-5 /HPF (0-5); SQUAMOUS EPITHELIAL CELL,UR NONE SEEN (<= Few)
== END 2021-08-13 23:59 | disposition home or self-care (01) ==
LOC: LAB.S 08:00
PROVIDERS: ATTEND Emergency Medicine
DX: N39.0 Urinary tract infection, site not specified (principal)
CPT/HCPCS: 81001; 87077; 87086; 87181